=== PATIENT | female | born 1970 | race Caucasian/White ===

== ENCOUNTER 2023-01-06 17:30 | Outpatient (CLI) | payer OTHER | END 2023-01-06 17:31 | disposition home or self-care (01) | LOC: SLEEPLAB 17:30 | PROVIDERS: ATTEND Registered Nurse | DX: G47.33 Obstructive sleep apnea (adult) (pediatric) (principal); R53.83 Other fatigue; F31.9 Bipolar disorder, unspecified; F41.9 Anxiety disorder, unspecified; R06.83 Snoring; I10 Essential (primary) hypertension | CPT/HCPCS: 95800 ==

== ENCOUNTER 2023-03-23 19:00 | Outpatient (CLI) | payer OTHER | END 2023-03-23 19:01 | disposition home or self-care (01) | LOC: SLEEPLAB 19:00 | PROVIDERS: ATTEND Registered Nurse | DX: G47.33 Obstructive sleep apnea (adult) (pediatric) (principal); R53.83 Other fatigue; F31.9 Bipolar disorder, unspecified; F41.8 Other specified anxiety disorders; R06.83 Snoring; I10 Essential (primary) hypertension | CPT/HCPCS: 95810 ==

== ENCOUNTER 2023-03-24 07:57 | Outpatient (CLI) | payer OTHER ==
[2023-03-24 09:46] LABS: #Basophils 0.1 10x3/uL (0.0-0.2); #Eosinphils 0.2 10x3/uL (0.0-0.5); #Monocytes 0.7 10x3/uL (0.0-1.1); #Neutrophils 3.8 10x3/uL (1.5-8.4); %Eosinophils 2.8 % (0.0-6.0); %Lymphocytes 23.3 % (18.0-47.0); %Monocytes 10.8 % (0.0-10.0); %Neutrophils 61.8 % (40.0-75.0); Hemoglobin 13.4 g/dL (12.0-15.5); Mean Corpuscular HGB CONC 32.9 g/dL (32.0-36.0); Mean Corpuscular Hemoglobin 33.3 pg (27.0-33.0); Mean Platelet Volume 9.8 fl (7.4-10.4); Platelet Count 259 10x3/uL (150-450); RBC Distribution Width 13.2 % (11.5-14.5); Red Blood Cell (RBC) Count 4.03 10x6/uL (3.90-5.03); White Blood Cell (WBC) Count 6.2 10x3/uL (3.5-10.5)
[2023-03-24 10:00] LABS: INR-International Normal Ratio 1.1; Prothrombin Time 11.4 sec (9.5-12.1)
[2023-03-24 10:02] LABS: Anion Gap 17 mmol/L (10-20); BUN (Urea Nitrogen) 21 mg/dL (9.8-20.1); Calc. Creatinine Clearance 0 mL/min (70-130); Calcium 9.6 mg/dL (7.8-10.44); Carbon Dioxide 24 mmol/L (22-29); Chloride 103 mmol/L (98-107); Estimated GFR 54; Glucose 94 mg/dL (70-105); Potassium 4.8 mmol/L (3.5-5.1); Sodium 139 mmol/L (136-145)
== END 2023-03-24 07:58 | disposition home or self-care (01) ==
LOC: LABBT 07:57
PROVIDERS: ATTEND Orthopaedic Surgery
DX: Z01.818 Encounter for other preprocedural examination (principal); M17.12 Unilateral primary osteoarthritis, left knee
CPT/HCPCS: 80048; 85025; 85610; 87081; 93005; 93010

== ENCOUNTER 2023-03-30 05:29 | Observation (INO) | payer OTHER ==
[2023-03-24 08:28] VITALS: BMI 25.6
[2023-03-30] MEDS ORDERED: Sodium Chloride 0.9% 100 ML ONE ×2 (05:48→07:01)
[2023-03-30] MEDS ORDERED: Vancomycin 1 GM/200 ML (FROZEN) BAG ONE (05:48)
[2023-03-30] MEDS ORDERED: Tranexamic Acid 1,000 MG/10 ML VIAL ONE (05:48)
[2023-03-30] MEDS ORDERED: fentaNYL PF 100 MCG/2 ML SYRINGE ONE ×2 (06:19→09:05)
[2023-03-30] MEDS ORDERED: Bupivacaine/Epinephrine 0.25% 30 ML VIAL ONE (06:25)
[2023-03-30] MEDS ORDERED: Midazolam HCl 2 mg/2 ml Vial ONE (06:34)
[2023-03-30] MEDS ORDERED: Lidocaine 1% (PF) 30 ML VIAL ONE (06:41)
[2023-03-30] MEDS ORDERED: EPINEPHrine 1 MG/ML AMP ONE (06:41)
[2023-03-30] MEDS ORDERED: Bupivacaine PF 0.5% 30 ML VIAL ONE (06:41)
[2023-03-30] MEDS ORDERED: Ondansetron PF 4 MG/2 ML Vial ONE (06:45)
[2023-03-30] MEDS ORDERED: PHENYLEPHRINE-NS 100 MCG/ML 10 ML SYRINGE ONE (06:45)
[2023-03-30] MEDS ORDERED: GLYCOPYRROLATE/PF 0.2 MG/ML VIAL ONE (06:45)
[2023-03-30] MEDS ORDERED: PROPOFOL 200 MG/20 ML VIAL ONE (06:45)
[2023-03-30] MEDS ORDERED: Ketorolac Tromethamine 30 MG/ML VIAL ONE (06:45)
[2023-03-30] MEDS ORDERED: ePHEDrine Sulfate 50 MG/10 ML VIAL ONE (06:45)
[2023-03-30] MEDS ORDERED: Dexamethasone 20 MG/5 ML VIAL ONE (06:45)
[2023-03-30] MEDS ORDERED: Lidocaine 1% PF 5 ML VIAL ONE (06:45)
[2023-03-30] MEDS ORDERED: CEFAZOLIN 2 GM VIAL ONE (07:01)
[2023-03-30] MEDS ORDERED: fentaNYL 50 mcg/mL 1 mL Vial SLOW IVP PRN (07:17)
[2023-03-30] MEDS ORDERED: Zolpidem Tartrate 5 MG TAB PO PRN ×2 (07:30→08:40)
[2023-03-30] MEDS ORDERED: Ondansetron PF 4 MG/2 ML Vial IVP PRN ×2 (07:30→08:40)
[2023-03-30] MEDS ORDERED: traMADol HCl 50 MG TAB PO PRN ×2 (07:30)
[2023-03-30] MEDS ORDERED: Ropivacaine 0.2% 550 ML 550 ML NERVE BLCK SCH (07:30)
[2023-03-30] MEDS ORDERED: HYDROcodone/Acetaminophen 10/325 mg Tablet PO PRN (07:30)
[2023-03-30] MEDS ORDERED: Promethazine HCl 25 MG/ML VIAL IM PRN ×2 (07:30→08:40)
[2023-03-30] MEDS ORDERED: Acetaminophen 325 MG TAB PO PRN (08:40)
[2023-03-30] MEDS ORDERED: diphenhydrAMINE 25 MG CAP PO PRN (08:40)
[2023-03-30] MEDS: HYDROcodone/Acetaminophen 10/325 mg Tablet PO PRN ×4 (10:12→22:36)
[2023-03-30] MEDS: Sodium Chloride 0.9% 1,000 ML IV SCH ×2 (12:38→21:28)
[2023-03-30] MEDS ORDERED: Nicotine 14 MG PATCH TOP SCH (13:30)
[2023-03-30] MEDS: CEFAZOLIN 2 GM in Sodium Chloride 0.9% 100 ML IVPB SCH ×2 (14:26→21:29)
[2023-03-30] MEDS ORDERED: Vancomycin 1 GM in Premix Bag 1 BAG IVPB SCH (18:00)
[2023-03-30] MEDS: Senokot S 8.6-50 MG TAB PO SCH ×2 (18:11→20:02)
[2023-03-30] MEDS: Aspirin 81 mg Enteric Coated Tablet PO SCH ×2 (18:11→21:27)
[2023-03-30] MEDS: Ferrous Gluconate 324 MG TAB PO SCH ×2 (18:11→21:25)
[2023-03-30] MEDS: Multivitamin W/ Minerals 1 TAB PO SCH (18:11)
[2023-03-30] MEDS ORDERED: Atorvastatin Calcium 10 MG TAB PO SCH (21:00)
[2023-03-30] MEDS ORDERED: QUEtiapine 200 MG TAB PO SCH (21:00)
[2023-03-30] MEDS ORDERED: Lisinopril/Hydrochlorothiazide 10 mg/12.5 mg Tablet PO SCH (21:00)
[2023-03-30] MEDS ORDERED: Prazosin HCl 1 MG CAP PO SCH (21:00)
[2023-03-30] MEDS ORDERED: Zolpidem Tartrate 5 MG TAB PO SCH (21:00)
[2023-03-30] MEDS: Methocarbamol 500 MG TAB PO SCH (21:24)
[2023-03-30] MEDS: Propranolol HCl 20 MG TAB PO SCH (21:24)
[2023-03-30] MEDS: Gabapentin 300 MG CAP PO SCH (21:25)
[2023-03-31] MEDS: Sodium Chloride 0.9% 1,000 ML IV SCH (03:01)
[2023-03-31] MEDS: HYDROcodone/Acetaminophen 10/325 mg Tablet PO PRN ×2 (04:45→09:11)
[2023-03-31 06:05] VITALS: TEMP 97.8
[2023-03-31 06:20] LABS: Red Blood Cell (RBC) Count 2.75 mill/uL (4.20-5.40)
[2023-03-31 06:22] LABS: Hemoglobin 9.2 g/dL (12.0-16.0); Mean Corpuscular HGB CONC 32.9 g/dL (32.0-36.0); Mean Corpuscular Hemoglobin 33.5 pg (27.0-31.0); Mean Corpuscular Volume 101.8 fl (78.0-98.0); Mean Platelet Volume 10.4 fL (7.4-10.4); Platelet Count 129 10x3/uL (130-400); RBC Distribution Width 12.3 % (11.5-14.5); White Blood Cell (WBC) Count 6.1 10x3/uL (4.8-10.8)
[2023-03-31 07:08] LABS: Anion Gap 14 mmol/L (10-20); BUN (Urea Nitrogen) 24 mg/dL (9.8-20.1); Calc. Creatinine Clearance 60 mL/min (70-130); Calcium 8.4 mg/dL (7.8-10.44); Carbon Dioxide 22 mmol/L (22-29); Chloride 102 mmol/L (98-107); Estimated GFR 60; Glucose 117 mg/dL (70-105); Potassium 4.5 mmol/L (3.5-5.1); Sodium 133 mmol/L (136-145)
[2023-03-31 08:58] VITALS: BP 92/59
[2023-03-31] MEDS ORDERED: Meloxicam 15 MG TAB PO SCH (09:00)
[2023-03-31] MEDS ORDERED: Ascorbic Acid 500 mg Chewable Tablet PO SCH (09:00)
[2023-03-31] MEDS ORDERED: Cholecalciferol 1,000 UNITS (25 MCG) TAB PO SCH (09:00)
[2023-03-31] MEDS ORDERED: Venlafaxine HCl XR 150 MG CAP PO SCH (09:00)
[2023-03-31] MEDS ORDERED: ESTROVEN MENOPAUSE PO SCH (09:00)
[2023-03-31] MEDS ORDERED: Cyanocobalamin (Vitamin B-12) 1,000 MCG TAB PO SCH (09:00)
[2023-03-31] MEDS ORDERED: Zinc Sulfate 220 MG CAP PO SCH (09:00)
[2023-03-31] MEDS: Ferrous Gluconate 324 MG TAB PO SCH (09:09)
[2023-03-31] MEDS: Methocarbamol 500 MG TAB PO SCH (09:10)
[2023-03-31] MEDS: Senokot S 8.6-50 MG TAB PO SCH (09:10)
[2023-03-31] MEDS: Aspirin 81 mg Enteric Coated Tablet PO SCH (09:10)
[2023-03-31] MEDS: Multivitamin W/ Minerals 1 TAB PO SCH (09:11)
[2023-03-31] MEDS: Propranolol HCl 20 MG TAB PO SCH (09:11)
[2023-03-31] MEDS: Gabapentin 300 MG CAP PO SCH (09:12)
== END 2023-03-31 12:17 | disposition home or self-care (01) ==
LOC: SDC 05:29 → SURG A 09:47
PROVIDERS: ADMIT Orthopaedic Surgery; ATTEND Orthopaedic Surgery
PROC: 0SRD0J9 Replacement of Left Knee Joint with Synthetic Substitute, Cemented, Open Approach (ICD-10-PCS; principal; 2023-03-30)
DX: M17.12 Unilateral primary osteoarthritis, left knee (principal); I10 Essential (primary) hypertension; G47.00 Insomnia, unspecified; Z87.891 Personal history of nicotine dependence; Z79.1 Long term (current) use of non-steroidal anti-inflammatories (NSAID); Z79.899 Other long term (current) drug therapy; Z88.0 Allergy status to penicillin; Z91.040 Latex allergy status; Z98.1 Arthrodesis status
CPT/HCPCS: 36415; 80048; 85027; 96365; 96375; 96376; A4306; C1713; C1776; G0378; J0171; J1100; J1885; J2001; J2250; J2405; J2704; J2795; J3370-JW; J3372; J3490; J7050; S0020

== ENCOUNTER 2023-05-09 19:00 | Outpatient (CLI) | payer OTHER | END 2023-05-09 19:01 | disposition home or self-care (01) | LOC: SLEEPLAB 19:00 | PROVIDERS: ATTEND Registered Nurse | DX: G47.33 Obstructive sleep apnea (adult) (pediatric) (principal); R53.83 Other fatigue; F31.9 Bipolar disorder, unspecified; F41.9 Anxiety disorder, unspecified; R06.83 Snoring; I10 Essential (primary) hypertension | CPT/HCPCS: 95811 ==

== ENCOUNTER 2023-06-22 13:02 | Outpatient (CLI) | payer OTHER | END 2023-06-22 13:03 | disposition home or self-care (01) | LOC: BICMAMMO 13:02 | PROVIDERS: ATTEND Registered Nurse | DX: Z12.31 Encounter for screening mammogram for malignant neoplasm of breast (principal) | CPT/HCPCS: 77063; 77067 ==

== ENCOUNTER 2024-08-18 13:31 | Outpatient (CLI) | payer OTHER ==
[2024-08-18 17:03] LABS: #Basophils 0.07 10x3/uL (0.0-0.2); %Basophils 1.6 % (0.0-1.0); %Eosinophils 4.6 % (0.0-10.0); %Lymphocytes 36.6 % (21.0-51.0); %Monocytes 9.4 % (0.0-10.0); %Neutrophils 47.6 % (42.0-75.0); Hematocrit 38.8 % (36.0-47.0); Mean Corpuscular HGB CONC 33.5 g/dL (32.0-36.0); Mean Corpuscular Hemoglobin 33.7 pg (27.0-31.0); Mean Corpuscular Volume 100.5 fL (78.0-98.0); Mean Platelet Volume 10.9 fL (7.4-10.4); Platelet Count 182 10x3/uL (130-400); RBC Distribution Width 11.9 % (11.5-14.5); Red Blood Cell (RBC) Count 3.86 mill/uL (4.20-5.40)
[2024-08-18 17:17] LABS: INR-International Normal Ratio 1.1; Prothrombin Time 13.7 sec (12.0-14.7)
[2024-08-18 17:18] LABS: BHCG - Serum Negative (NEGATIVE); Pregs Control Background? CLEAR/WHITE (CLR/WHITE); Pregs Control Bar Appear? YES (CONTROL BAR)
[2024-08-18 17:21] LABS: Anion Gap 14 mmol/L (10-20); BUN (Urea Nitrogen) 25 mg/dL (9.8-20.1); Calc. Creatinine Clearance 0 mL/min (70-130); Calcium 9.5 mg/dL (7.8-10.44); Carbon Dioxide 26 mmol/L (22-29); Chloride 101 mmol/L (98-107); Estimated GFR 57; Glucose 76 mg/dL (70-105); Potassium 4.8 mmol/L (3.5-5.1); Sodium 136 mmol/L (136-145)
== END 2024-08-18 13:32 | disposition home or self-care (01) ==
LOC: LABBT 13:31
PROVIDERS: ATTEND Orthopaedic Surgery Hand Surgery
DX: Z01.818 Encounter for other preprocedural examination (principal); M18.0 Bilateral primary osteoarthritis of first carpometacarpal joints
CPT/HCPCS: 80048; 84703; 85025; 85610; 87081; 93005; 93010

== ENCOUNTER 2024-08-22 12:40 | Day surgery (SDC) | payer MEDICARE, OTHER ==
[2024-08-18 14:30] VITALS: BMI 24.7
[2024-08-22] MEDS ORDERED: Midazolam HCl 2 mg/2 ml Vial ONE (14:53)
[2024-08-22] MEDS ORDERED: fentaNYL 50 mcg/mL 1 mL Vial ONE (14:53)
[2024-08-22] MEDS ORDERED: EPINEPHrine 1 MG/ML VIAL ONE (14:53)
[2024-08-22] MEDS ORDERED: Bupivacaine PF 0.5% 30 ML VIAL ONE (14:54)
== END 2024-08-22 15:45 | disposition home or self-care (01) ==
LOC: SDC 12:40
PROVIDERS: ATTEND Orthopaedic Surgery Hand Surgery
DX: M18.0 Bilateral primary osteoarthritis of first carpometacarpal joints (principal); Z53.9 Procedure and treatment not carried out, unspecified reason
CPT/HCPCS: J0171; J0665; J2250; J3010

== ENCOUNTER 2024-09-27 10:10 | Outpatient (CLI) | payer MEDICARE | END 2024-09-27 10:11 | disposition home or self-care (01) | LOC: BICMAMMO 10:10 | PROVIDERS: ATTEND Registered Nurse | DX: Z12.31 Encounter for screening mammogram for malignant neoplasm of breast (principal) | CPT/HCPCS: 77063; 77067 ==